=== PATIENT | male | born 1990 | race African-American/Black ===

== ENCOUNTER 2021-12-06 08:31 | Outpatient (REF) | payer OTHER, SELFPAY ==
[2021-12-06 08:54] LABS: COVID-19 Test Positive (Negative)
== END 2021-12-06 08:32 | disposition home or self-care (01) ==
LOC: HO.LAB 08:31
PROVIDERS: Visit Provider Internal Medicine
DX: Z20.822 Contact with and (suspected) exposure to COVID-19 (principal)
CPT/HCPCS: 87635; C9803

== ENCOUNTER 2023-03-01 15:33 | Outpatient (REF) | payer OTHER, SELFPAY ==
--- NOTE | 2023-03-01 17:14 | MHC.AU.HA1 ---
Hearing Aid Evaluation Date of Visit: 03/01/23 Business Office Specialist Used: No Historical Information: Description of Hearing: Right Ear - Severe sensorineural hearing loss at 250 Hz, rising to normal hearing thresholds at 8980-2767 Hz and a mild loss at 8000 Hz. 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 He is medically cleared by Dr. Villasenor for a right hearing aid. Discussed the difficulty with his low frequency loss and amplifying noise. However, he plans to download the [employer] millie and to make adjustments in his various work conditions. Discussed BENIGNO vs ITC styles. Patient is more interested in the ITC style as it resembles bluetooth earphones. Hearing Aid Prescription: Based on the individual?s shared listening needs, communication environments, dexterity, desire for connectivity, and personal preferences, the following prescription for amplification has been made: Right ear: Make, Model, Color: Balancedo P 70-312 Black Battery Size: 312 Meat Seafood Associate/Slim Tube: Type of Earmold/Dome/CShell/SlimTip: Plan of Care: Patient wishes to purchase hearing aids as prescribed Action Taken/Action Needed: Earmold Impressions Taken Prior authorization to be requested Primary Diagnosis: H90.41 SNHL Unilateral Right Ear, W/Unrestricted Contralateral Hearing Signature: Provider: Betty Gunn, [facility]
== END 2023-03-01 15:34 | disposition home or self-care (01) ==
LOC: HO.HAP 15:33
PROVIDERS: Visit Provider Otolaryngology
DX: H90.41 Sensorineural hearing loss, unilateral, right ear, with unrestricted hearing on the contralateral side (principal); Z46.1 Encounter for fitting and adjustment of hearing aid
CPT/HCPCS: 92590; V5275

== ENCOUNTER 2023-03-20 08:28 | Outpatient (REF) | payer OTHER, SELFPAY ==
--- NOTE | 2023-03-20 09:51 | MHC.AU.HA4 ---
Hearing Instrument Fitting- Adult- Right Ear Date of Visit: 03/20/23 Hearing Instruments Dispensed: Right Ear: Make, Model, Color, Serial Number: Althea Acevedo P 70-312, SN: [id number], black Vegetable Buncher Repair Warranty: 06/09/2026 Vegetable Buncher Loss and Damage Warranty: 06/09/2026 [facility] Service Plan: 03/20/2024 Battery Size: 312 Type of Wax Guard: Cerustop Summary of Fitting: The patient is here today for a right hearing aid fitting. The hearing aid was programmed to his most recent audiogram, on 100% target gain. Push button is enabled for answering/ending phone calls. Feedback software engineering project manager was run. Speech mapping reveals the hearing aid is functioning and meeting targets appropriately. The patient reported loud but comfortable volume and a comfortable fit. Reviewed cleaning, care and use of the hearing aid. Encouraged consistent use during all waking hours. The patient was able to insert and remove the hearing aid with ease. We paired the hearing aid to his Android phone and [employer] millie. The patient signed the [employer] receipt, which was reviewed, and a copy was given. Dispensed 6 batteries. The patient will return in 2-3 weeks for a hearing aid check. Diagnosis Code(s): Primary Diagnosis: H90.41 SNHL Unilateral Right Ear, W/Unrestricted Contralateral Hearing; Secondary Diagnosis: Signature: Provider: Margarita Contreras, [facility]
== END 2023-03-20 08:29 | disposition home or self-care (01) ==
LOC: HO.HAP 08:28
PROVIDERS: Visit Provider Otolaryngology
DX: Z46.1 Encounter for fitting and adjustment of hearing aid (principal); H90.41 Sensorineural hearing loss, unilateral, right ear, with unrestricted hearing on the contralateral side
CPT/HCPCS: 92594; V5011; V5020; V5241; V5256; V5266

== ENCOUNTER 2023-04-24 08:43 | Outpatient (REF) | payer OTHER, SELFPAY | END 2023-04-24 08:44 | disposition home or self-care (01) | LOC: HO.HAP 08:43 | PROVIDERS: Visit Provider Otolaryngology | DX: Z13.89 Encounter for screening for other disorder (principal) ==

== ENCOUNTER 2023-07-12 08:44 | Outpatient (REF) | payer OTHER, SELFPAY | END 2023-07-12 08:45 | disposition home or self-care (01) | LOC: HO.HAP 08:44 | PROVIDERS: Visit Provider Internal Medicine | DX: Z13.89 Encounter for screening for other disorder (principal) ==

== ENCOUNTER 2024-11-26 15:45 | Outpatient (REF) | payer OTHER, SELFPAY ==
--- NOTE | 2024-11-26 16:52 | MHC.AU.MED ---
Medical Clearance for Hearing Instrumentation Date: 11/26/24 Patient Name: Benoit Lal Date of : 1990 Primary Care Provider: Referring Provider: Bob Villasenor MD We have seen your patient on 11/26/24 and have determined that they are a candidate for amplification (See accompanying report). Specifically, they would benefit from: Hearing aid use in right ear There is a statute that addresses Medical Evaluation Requirements prior to fitting a patient with a hearing aid. According to [place] statute 265 CMR:6.03(1), (a) General. Except as provided in 265 CMR 6.03(1)(b), a staff development coordinator rn shall not sell a hearing aid unless the prospective user has presented to the staff development coordinator rn a written statement signed by a licensed physician that states that the patient's hearing loss has been medically evaluated and the patient may be considered a candidate for a hearing aid. The medical evaluation must have taken place within the preceding six months. Please note: Due to the [place] Statute referenced above, we cannot accept a signature other than that of a licensed physician. WEB DESIGNER and PA signatures cannot be accepted. I am in agreement with the above recommendation. There is no medical contraindication for hearing instrumentation. Physician Signature Date Physician Name (Printed)
== END 2024-11-26 15:46 | disposition home or self-care (01) ==
LOC: HO.SH 15:45
PROVIDERS: Visit Provider Otolaryngology
DX: Z01.118 Encounter for examination of ears and hearing with other abnormal findings (principal); H90.A21 Sensorineural hearing loss, unilateral, right ear, with restricted hearing on the contralateral side
CPT/HCPCS: 92552; 92556